=== PATIENT | male | born 1960 | race Caucasian/White ===

== ENCOUNTER → 2017-05-31 | Outpatient (CLI) | payer OTHER | LOC: ULTRA 08:12 → EDSTATUS 08:13 → ULTRA 08:24 | DX: R42 Dizziness and giddiness (principal); G45.9 Transient cerebral ischemic attack, unspecified; E11.9 Type 2 diabetes mellitus without complications; Z79.4 Long term (current) use of insulin ==

== ENCOUNTER → 2019-06-13 | Outpatient (CLI) | payer OTHER | LOC: ULTRA 09:34 | DX: M79.669 Pain in unspecified lower leg (principal); M79.89 Other specified soft tissue disorders ==

== ENCOUNTER → 2019-10-05 | Outpatient (CLI) | payer OTHER | LOC: ULTRA 15:37 | DX: I65.23 Occlusion and stenosis of bilateral carotid arteries (principal); H53.9 Unspecified visual disturbance ==

== ENCOUNTER → 2019-10-11 | Outpatient (CLI) | payer OTHER | LOC: RAD 09:08 | DX: R06.02 Shortness of breath (principal); I82.4Z2 Acute embolism and thrombosis of unspecified deep veins of left distal lower extremity ==

== ENCOUNTER 2019-10-17 10:52 | Inpatient (IN) | payer OTHER ==
[2019-10-17 13:30] VITALS: BP 134/89
[2019-10-17] MEDS ORDERED: ROSUVASTATIN CA20 MG PO (13:47)
[2019-10-17] MEDS ORDERED: LANTUS SUBQ (13:48)
[2019-10-17] MEDS ORDERED: NORVASC 2.5 MG2.5 M1 PO (13:49)
[2019-10-17] MEDS ORDERED: SPIRONOLACTONE25 MG PO (13:49)
[2019-10-17] MEDS ORDERED: GLIPIZIDE ER5 MG PO (13:50)
[2019-10-17] MEDS ORDERED: METFORMIN HCL500 M3 PO (13:51)
[2019-10-17] MEDS ORDERED: LISINOPRIL2.5 MG PO (13:51)
[2019-10-17 15:17] LABS: HEMATOCRIT 43.8 % (42.0-52.0); HEMOGLOBIN 14.7 gm/dL (14.0-18.0); MCH 28.1 pg (26.0-34.0); MCHC 33.6 g/dL (28.0-37.0); MCV 83.7 fL (80.0-100.0); RBC 5.23 mil/uL (4.50-6.00); WBC 6.7 thou/uL (4.0-11.0)
[2019-10-17 15:42] LABS: ALBUMIN 3.1 g/dL (3.4-5.0); CALCIUM 8.8 mg/dL (8.5-10.1); CREATININE 1.3 mg/dL (0.7-1.3); POTASSIUM 4.2 mmol/L (3.5-5.1); TOTAL BILIRUBIN 0.3 mg/dL (<0.1-1.0); TOTAL PROTEIN 5.8 g/dL (6.4-8.2)
--- NOTE | 2019-10-17 19:52 | NUR ---
PT. ARRIVED AT FLOOR AROUND 1330; AOX4; ABLE TO AMBULATE INDEPENDENTLY; ST. HX OF PASSING OUT 6 WKS AGO; FALL RISK; EDUCATED ABOUT FALL PREVENTIONS; ST. UNDERSTANDING; IV STARTED OVER R. FORE ARM; ADMISSION PERFORMED; SR ON THE MONITOR; NO C/O PAIN; GONE FOR XRAY; IV LASIX GIVEN; CLARIFY DIET ORDERS WITH NURSE PRACTITIONER; PT. EDUCATED ABOUT NPO AT MIDNIGHT; ST. UNDERSTANDING; ASSESSMENT CHARGED; FOLLOWING POC; PASSED ON REPORT;
[2019-10-17 20:24] VITALS: BP 128/92
[2019-10-17] MEDS ORDERED: ELIQUIS5 MG PO (21:15)
[2019-10-18] VITALS (13 sets, daily range): BP systolic 112–143; BP diastolic 76–97
--- NOTE | 2019-10-18 05:01 | NUR ---
ASSUMED PT CARE AT 1900. PT IS ALERT AND ORIENTED. NO SIGN OF DISTRESS NOTED IN PT. FAMILY AT BEDSIDE. ASSESSMENT COMPLETED AND DOCUMENTED. VITAL SIGNS STABLE. PT IS EDUCATED ON NPO STATUS AFTER MN FOR A SCHEDULED CARDIAC CATH. VERBALIZES UNDERSTANDING. SCHEDULED MEDS ADMINISTERED TO PT. NSR ON THE MONITOR. DENIES ANY CHEST PAIN. CONTINUE TO MONITOR PATIENT. DENIES ANY FURTHER NEEDS AT THIS TIME.
[2019-10-18 11:01] LABS: CALCIUM 8.3 mg/dL (8.5-10.1); CREATININE 1.5 mg/dL (0.7-1.3); POTASSIUM 4.1 mmol/L (3.5-5.1)
--- NOTE | 2019-10-18 15:52 | CATHLAB ---
[facility] [place] [address] INVASIVE PROCEDURE REPORT Name: MARCO ANTONIO MORA Room #: 212-P ADM IN M.R.#: [id number] Admission: 10/17/19 Attend Phys: Chi Nazario MD, Discharge: Date of : 64 Report #: [id number] THIS REPORT FOR: cc: Vita Martins DNP, Mary E. DNP Mancuso, Gerald M. MD [facility] ~ APPROVED REPORT Study performed: 10/18/2019 07:35:19 Patient Details Patient Status: In-Patient Room #: The patient is a 59 year-old male Event Personnel Chi Nazario Meter Mechanic, Diamante Quinteros RN, Tremayne Araujo RTR Scrgustavo, Lencho Porter Monitor Procedures Performed Right and Left Heart Cath w/or w/o Coronarie [id number] [facility] Supravalvular Aortography Injection 0280512 ISVA Renal Bilateral Peripheral Angiography [id number] CVRENALBIL Indication Chest pain Procedure Narrative The Left Groin^ was infiltrated with 1% Lidocaine subcutaneous anesthesia. A PINNACLE 6FR Sheath #[id number] sheath was inserted into the . Coronary angiography was performed using coronary diagnostic catheters. The right coronary system was accessed and visualized with a JR4 catheter. The left coronary system was accessed and visualized with a JL4 catheter. The left ventricle was accessed and visualized with a PIGTAIL catheter. An aortogram of the ascending aorta was performed. Closure device was deployed with a 6 Fr MYNXGRIP 6/7F #[id number]. The patient tolerated the procedure well and there were no complications associated with the procedure. There was no hematoma. Intraoperative Conscious Sedation Sedation start time: 8.17 Case end Time: 8.58 Fentanyl 75 mcg Versed 1 mg [facility] [place] [address] [place] [address] INVASIVE PROCEDURE REPORT Name: MARCO ANTONIO MORA KAREN Room #: 212-P [facility] IN ..#: [id number] Admission: 10/17/19 Attend Phys: Chi Nazario, Discharge: Date of : 64 Report #: [id number] Fluoro Time: 4.40 minutes Dose: DAP 8893.00 cGycm2 790 mGy Contrast Type and Amount: Visipaque 90 ml Hemodynamics The right atrial mean pressure is 9 mmHg. The right ventricular pressure is 39/3 mmHg. The pulmonary artery pressure is 40/23 mmHg with a mean of 32 mmHg. The mean pulmonary capillary wedge pressure is 28 mmHg. The aortic pressure is 155/80 mmHg with a mean of 105 mmHg. Conclusion #1 successful right heart catheterization with moderate elevation in pulmonary pressures decreased cardiac output see above hemodynamics #2 significant aortic valve stenosis valve not crossed there is moderately severe global hypokinesis noted by echo EF 20% range moderate aortic root dilatation is noted. Probable bicuspid valve. #3 left main is large and free of disease giving rise to LAD and circumflex #4 the LAD extends around the apex with mild irregularities proximal calcification is noted. #5 circumflex OM large dominant system with mild irregularities in proximal calcification. #6 small nondominant right with mild irregularity #7 bilateral selective renal angiography revealing mild disease in the proximal left wide patency of the right renal artery Recommendations and plan: Continue aggressive risk factor modification. Continue IV Lasix for diuresis. Transfer back to CCU for further monitoring. Will recommend PEDRO PABLO to further evaluate what I suspect to be a bicuspid aortic valve which at least moderate to moderately severe aortic stenosis. Etiology of LV dysfunction is not clear but may be valvular. This is a nonischemic dilated cardiomyopathy. <ELECTRONICALLY SIGNED> By: Chi Nazario MD, FACC 10/18/19 155 155 50 Chi Nazario MD, FACC /INF
--- NOTE | 2019-10-18 17:17 | NUR ---
ASSUMMED PT CARE AT APPROXIMATELY 0700. PT A&O X4. ASSESSMENT CHARTED. FALL PRECAUTIONS IN PLACE. PT DENIES HAVING CHEST PAIN. PT DENIES HAVING SOB. PT DENIES HAVING ACUTE PAIN. PT POST CATH. R GROIN SITE C/D/I. NO HEMATOMA. POST-CATH VITAL SIGNS COMPELTE. VITAL SIGNS STABLE. BED REST COMPLETE. PT AMBULATES INDEPENDENT/STEADY. CONSENT SIGNED FOR PEDRO PABLO PROCEDURE TOMORROW. PT AND PT'S FAMILY EDUCATED ABOUT POC. PT AND PT'S FAMILY STATED UNDERSTANDING AND DENIED HAVING FURTHER CONCERNS. PT COMFORTABLE IN BED. PT DENIES HAVING FURTHER CONCERNS. BLOOD SUGARS STABLE. ASKED TORSTEN NASH IF PT COULD RESUME HOME MEDS. DENG NASH STATED THE PT DID NOT NEED HIS HOME MEDS RESUMED AT THIS TIME.
[2019-10-19 05:08] VITALS: BP 134/87
--- NOTE | 2019-10-19 05:24 | NUR ---
ASSUMED PT CARE AT 1900. PT IS ALERT AND ORIENTED. NO SIGN OF DISTRESS NOTED IN PT. FAMILY AT BEDSIDE. RIGHT GROIN SITE IS INTACT. NO SIGN OF BLEEDING OR HEAMTOMA. DENIES ANY PAIN. ASSESSMENT COMPLETED AND DOCUMENTED. SCHEDULED MEDS ADMINISTERED TO PT. PT IS NPO AFTER MIDMIGHT FOR A SCHEDULED PEDRO PABLO. VERBALIZES UNDERSTANDING. CONTINUE TO MONITOR PT. DENIES ANY FURTHER NEEDS AT THIS TIME.
[2019-10-19] MEDS ORDERED: METOPROLOL SUCC25 M1 PO (09:20)
[2019-10-19] MEDS ORDERED: DEMADEX20 MG PO (09:20)
[2019-10-19 09:30] VITALS: BP 126/76
--- NOTE | 2019-10-19 09:35 | TEE ---
[address] [address] TRANSESOPHAGEAL ECHOCARDIOGRAM Name: MARCO ANTONIO MORA Room #: 212-P ADM IN M.R.#: [id number] Admission: 10/17/19 Attend Phys: Chi Nazario MD, Discharge: Date of : 64 Report #: [id number] THIS REPORT FOR: cc: Vita Martins DNP, Mary E. DNP Lundgren, Craig H. MD [facility] ~ APPROVED REPORT Study performed: 10/19/2019 07:54:58 EXAM: Comprehensive 2D, Doppler, and color-flow Echocardiogram Patient Location: In-Patient Room #: [facility] Status: routine BSA: 0.83 HR: 85 bpm BP: 133/92 mmHg Rhythm: NSR Other Information Study Quality: Excellent Indications Aortic Valve Disease Cardiomyopathy Echo Enhancing Agent Indication: Rule out Shunt Agent(s) / Amount(s) Used: Agitated Saline 7 cc 2D Dimensions Ascending Ao: 37.96 (22-36mm) Procedure After obtaining informed consent, patient underwent transesophageal echo in the [employer]. Type of Sedation : Conscious Sedation Sedation was administered by Nurse. Sedation was achieved intravenously with: Versed (5 mg) Fentanyl (100 mcg) Transesophageal probe was inserted and advanced into esophagus without difficulty by Hector Locke MD. Echo enhancement indication: R/O Septal defect. [address] [place] [address] TRANSESOPHAGEAL ECHOCARDIOGRAM Name: MARCO ANTONIO MORA Room #: 212-P ADM IN M.R.#: [id number] Admission: 10/17/19 Attend Phys: Chi Nazario, Discharge: Date of : 64 Report #: [id number] Echo enhancement agent administered: Agitated Saline The PEDRO PABLO was performed without complications. Throughout the procedure, the blood pressure, pulse oximetry, cardiac rhythm, and rate were monitored. The patient tolerated the procedure without adverse effects. Recovery from conscious sedation was uneventful and vital signs were stable. Left Ventricle Left ventricle is dilated. There is global hypokinesis of the left ventricle. There is normal left ventricular wall thickness. Left ventricular ejection fraction is severely decreased. LVEF is 20%. Right Ventricle The right ventricle is normal size. The right ventricular systolic function is normal. Atria The left atrium size is normal. No thrombus is visualized in the left atrium or appendage. No shunting by contrast bubble injection The right atrium size is normal. Aortic Valve Aortic valve is probably bicuspid, heavily calcified and stenotic. Trace aortic regurgitation. Moderate to severe aortic stenosis. Mitral Valve The mitral valve is normal in structure. There is no mitral valve regurgitation noted. No evidence of mitral valve stenosis. Tricuspid Valve The tricuspid valve is normal in structure. There is no tricuspid valve regurgitation noted. Pulmonic Valve The pulmonary valve is normal in structure. There is no pulmonic valvular regurgitation. Great Vessels The aortic root is normal in size. The ascending aorta is dilated. IVC is normal in size and collapses >50% with inspiration. Pericardium [facility] [address] [place] [address] TRANSESOPHAGEAL ECHOCARDIOGRAM Name: MARCO ANTONIO MORA Room #: 212-P ADM IN M.R.#: [id number] Admission: 10/17/19 Attend Phys: Chi Nazario, Discharge: Date of : 64 Report #: [id number] There is no pericardial effusion. <Conclusion> Left ventricular ejection fraction is severely decreased. There is global hypokinesis of the left ventricle. LVEF is 20%. No thrombus is visualized in the left atrium or appendage. No shunting by contrast bubble injection Aortic valve is probably bicuspid, heavily calcified and stenotic (See transthoracic Doppler). Trace aortic regurgitation. The mitral valve is normal in structure. No mitral valve regurgitation Normal aorta There is no pericardial effusion. <ELECTRONICALLY SIGNED> By: Hector Locke MD, FACC 10/19/1932 3 Hector Locke MD, FACC /INF
[2019-10-19 11:30] VITALS: BP 138/77
[2019-10-19 11:46] VITALS: BP 138/77
--- NOTE | 2019-10-19 14:29 | NUR ---
ASSUMMED PT CARE AT APPROXIMATELY 0700. PT A&O X4. ASSESSMENT CHARTED. FALL PRECAUTIONS IN PLACE. PT DENIES HAVING CHEST PAIN. PT DENIES HAVING SOB. PT DENIES HAVING ACUTE PAIN. PT DISCHARGING HOME C SELF CARE. PT AND PT'S FAMILY RECIEVED EDUCATION. PT AND PT'S FAMILY STATED UNDERSTANDING AND DENIED HAVING FURTHER CONCERNS. IV DC. TELE DC. VITAL SIGNS STABLE. BLOOD SUGARS STABLE. PT STATED HE PREFFERED AMBULATING OFF THE UNIT C FAMILY. PT AMBULATES STEADY/INDEPENDENT. PT COMFORTABLE. PT DENIES HAVING FURTHER CONCERNS. R GROIN C/D/I. NO HEMATOMA.
--- NOTE | 2019-10-20 09:05 | EKG ---
[facility] [place] [address] ELECTROCARDIOGRAM REPORT Name: MARCO ANTONIO MORA Room #: 212-P DIS IN M.R.#: [id number] Admission: 10/17/19 Attend Phys: Chi Nazario MD, Discharge: 10/19/19 Date of : 64 Report #: [id number] THIS REPORT FOR: cc: Vita Martins DNP, Mary E. DNP Lundgren, Craig H. MD [facility] THIS REPORT FOR: //name// [facility] Test Date: 2019-10-18 Test Time: 10:20:56 Pat Name: MARCO ANTONIO MORA Department: Room: 212 P Gender: M Instructional Services Librarian: Krysten FIELDS : 1960 Requested By: Chi Nazario Order Number: [id number] MD: Hector Locke Measurements Intervals [place] Rate: 84 P: 53 LA: 202 QRS: 9 QRSD: 115 T: 146 QT: 412 QTc: 488 Interpretive Statements Sinus rhythm Borderline prolonged LA interval T-wave abnormality, consider lateral ischemia Borderline prolonged QT interval No previous ECG available for comparison Electronically Signed On 10-20-2019 9:04:24 DANCE ARTIST by Hector Locke [email or web address] <ELECTRONICALLY SIGNED> By: Hector Locke MD, [facility] 10/20/19 0904 1020 1020 Hector Locke MD, [facility] /EPI
== END 2019-10-19 14:32 | disposition home or self-care (01) | DRG 286 ==
LOC: SJCVCIMAG 10:52 → 2N 12:51
PROVIDERS: ADMIT Internal Medicine Cardiovascular Disease
PROC: B418YZZ Fluoroscopy of Bilateral Renal Arteries using Other Contrast (ICD-10-PCS; principal; 2019-10-17)
PROC: 4A023N8 Measurement of Cardiac Sampling and Pressure, Bilateral, Percutaneous Approach (ICD-10-PCS; principal; 2019-10-17)
PROC: B215YZZ Fluoroscopy of Left Heart using Other Contrast (ICD-10-PCS; principal; 2019-10-17)
PROC: B310YZZ Fluoroscopy of Thoracic Aorta using Other Contrast (ICD-10-PCS; principal; 2019-10-17)
PROC: B211YZZ Fluoroscopy of Multiple Coronary Arteries using Other Contrast (ICD-10-PCS; principal; 2019-10-17)
PROC: B24BZZ4 Ultrasonography of Heart with Aorta, Transesophageal (ICD-10-PCS; principal; 2019-10-17)
DX: I35.0 Nonrheumatic aortic (valve) stenosis (principal); I50.23 Acute on chronic systolic (congestive) heart failure; I42.8 Other cardiomyopathies; I11.0 Hypertensive heart disease with heart failure; E78.5 Hyperlipidemia, unspecified; E11.9 Type 2 diabetes mellitus without complications; E78.00 Pure hypercholesterolemia, unspecified; Z96.659 Presence of unspecified artificial knee joint; I25.10 Atherosclerotic heart disease of native coronary artery without angina pectoris; I87.2 Venous insufficiency (chronic) (peripheral); Z86.718 Personal history of other venous thrombosis and embolism; Z79.01 Long term (current) use of anticoagulants; Z79.84 Long term (current) use of oral hypoglycemic drugs; Z79.899 Other long term (current) drug therapy; Z83.3 Family history of diabetes mellitus; Z87.891 Personal history of nicotine dependence
CPT/HCPCS: 10081

== ENCOUNTER → 2019-11-20 | Outpatient (CLI) | payer OTHER ==
[~2019-11-20] MED LIST: DEMADEX20 MG PO; ELIQUIS5 MG PO; GLIPIZIDE ER5 MG PO; LANTUS SUBQ; LISINOPRIL2.5 MG PO; METFORMIN HCL500 M3 PO; METOPROLOL SUCC25 M1 PO; NORVASC 2.5 MG2.5 M1 PO; ROSUVASTATIN CA20 MG PO; SPIRONOLACTONE25 MG PO
== END ==
LOC: SJCVCIMAG 11:06
DX: I08.2 Rheumatic disorders of both aortic and tricuspid valves (principal); I25.5 Ischemic cardiomyopathy; I50.9 Heart failure, unspecified

== ENCOUNTER → 2019-11-22 | Outpatient (CLI) | payer OTHER | LOC: SJCVCIMAG 08:35 | DX: I10 Essential (primary) hypertension (principal); N20.0 Calculus of kidney; R74.8 Abnormal levels of other serum enzymes ==

== ENCOUNTER → 2020-02-21 | Outpatient (CLI) | payer OTHER | LOC: SJCVCIMAG 11:29 | PROVIDERS: ATTEND Internal Medicine Cardiovascular Disease | DX: I35.0 Nonrheumatic aortic (valve) stenosis (principal); I51.7 Cardiomegaly; I42.9 Cardiomyopathy, unspecified ==

== ENCOUNTER → 2020-04-12 | Outpatient (CLI) | payer OTHER | LOC: SJCVCIMAG 10:46 | PROVIDERS: ATTEND Internal Medicine Cardiovascular Disease | DX: I82.611 Acute embolism and thrombosis of superficial veins of right upper extremity (principal); Z87.891 Personal history of nicotine dependence ==

== ENCOUNTER → 2020-06-06 | Outpatient (CLI) | payer OTHER | LOC: SJCVCIMAG 11:38 | PROVIDERS: ATTEND Internal Medicine Cardiovascular Disease | DX: I11.0 Hypertensive heart disease with heart failure (principal); I50.9 Heart failure, unspecified; E11.9 Type 2 diabetes mellitus without complications; E78.00 Pure hypercholesterolemia, unspecified; I42.9 Cardiomyopathy, unspecified; Z95.2 Presence of prosthetic heart valve; Z87.891 Personal history of nicotine dependence ==

== ENCOUNTER → 2021-01-08 | Outpatient (CLI) | payer OTHER | LOC: SJCVCIMAG 08:09 | PROVIDERS: ATTEND Internal Medicine Cardiovascular Disease | DX: I35.1 Nonrheumatic aortic (valve) insufficiency (principal); I11.0 Hypertensive heart disease with heart failure; I50.23 Acute on chronic systolic (congestive) heart failure; I42.9 Cardiomyopathy, unspecified; Z95.2 Presence of prosthetic heart valve ==

== ENCOUNTER → 2021-01-29 | Outpatient (CLI) | payer OTHER | LOC: RAD 09:40 | PROVIDERS: ATTEND Internal Medicine | DX: R06.02 Shortness of breath (principal) ==